=== PATIENT | female | born 1985 ===

== ENCOUNTER 2017-06-20 23:43 | Emergency (ER) | payer BC ==
[2017-06-21] MEDS ORDERED: Sodium Chloride 0.9% 1,000 ML IV STA (00:43)
[2017-06-21] MEDS ORDERED: DiphenhydrAMINE 50 mg/ml Inj IVP STA (00:44)
[2017-06-21] MEDS ORDERED: Amoxicillin-Clav 875-125 mg Tab PO STA (00:44)
--- NOTE | 2017-06-21 00:49 | ED PDOC ---
Arrival/HPI - General Historian: Patient - General Chief Complaint: Abnormal Skin Integrity Time Seen by Provider: 06/21/17 00:42 - History of Present Illness Narrative History of Present Illness (Text): 06/21/17 00:48 This 31 yo female presents to this ED c/o right forearm pruritic rash x 1 week. Patient stated rash was very itchy, and she admits scartching it. Patient was seen by promotions intern, who prescribed her steroild cream. Patient stated rash is becoming increasingly red, and swollen. Patient (Alexander Benedict) Past Medical History - Endocrine/Metabolic Hx Diabetes Mellitus Type 2: Yes - Psychiatric Hx Substance Use: Yes (occasional marijuana) Family/Social History Smoking Status: Never Smoked Hx Alcohol Use: Yes Frequency of alcohol use: Socially Hx Substance Use: Yes (occasional marijuana) Allergies/Home Meds Allergies/Adverse Reactions: Allergies No Known Allergies Allergy (Verified 06/21/17 00:17) Home Medications: Home Meds Medication Instructions Recorded Confirmed MetFORMIN [glucOPHAGE] 1,000 mg PO DAILY 06/21/17 06/21/17 Medical Decision Making Re-evaluation Time: 01:23 Reassessment Condition: Re-examined, Improved ED Course and Treatment: 06/21/17 00:58 I was available for consultation during PA evaluation. The chart was reviewed by me, and I agree with disposition. The documented history was done by the physician order entry specialist. The documented procedures were done by the physician order entry specialist. (Zelalem Monroe) 06/21/17 01:[address] scan of the head. She stated RUSSELL and dizziness have improved , and she prefers to see her doctor first. (Alexander Benedict) - Medication Orders Current Medication Orders: Sodium Chloride (Sodium Chloride 0.9%) 1,000 mls @ 999 mls/hr IV .Q1H1M STA Stop: 06/21/17 01:43 Last Admin: 06/21/17 01:22 Dose: 999 mls/hr Discontinued Medications Amoxicillin/Clavulanate Potassium (Augmentin 875 Mg-125 Mg Tab) 1 tab PO STAT STA PRN Reason: Protocol Stop: 06/21/17 00:45 Last Admin: 06/21/17 01:23 Dose: 1 tab Diphenhydramine HCl (Benadryl) 50 mg IVP STAT STA Stop: 06/21/17 00:45 Last Admin: 06/21/17 01:23 Dose: 50 mg Ketorolac Tromethamine (Toradol) 15 mg IVP STAT STA Stop: 06/21/17 00:44 Last Admin: 06/21/17 01:22 Dose: 15 mg Metoclopramide HCl (Reglan) 10 mg IVP STAT STA Stop: 06/21/17 00:44 Last Admin: 06/21/17 01:22 Dose: 10 mg Disposition/Present on Arrival - Present on Arrival Any Indicators Present on Arrival: No History of DVT/PE: No History of Uncontrolled Diabetes: No Urinary Catheter: No History of Decub. Ulcer: No History Surgical Site Infection Following: None - Disposition Have Diagnosis and Disposition been Completed?: Yes Disposition Time: 01:50 Patient Plan: Discharge - Disposition Diagnosis: Rash and nonspecific skin eruption, Headache Disposition: HOME/ ROUTINE Condition: GOOD Discharge Instructions (ExitCare): General Headache (ED), Acute Rash (ED) Additional Instructions: Call private doctor for follow up visit in 1-2 days. Take medication as instructed with food. Return to emergency if symptoms worsen. Call your promotions intern for rash revaluation. Prescriptions: Acetaminophen/Butalbital/Caf [Fioricet] 1 tab PO Q4H PRN #12 tab PRN Reason: Headache Amoxicillin/Clavulanate [Augmentin 875 MG-125 MG] 1 tab PO BID #14 tab Nystatin/Triamcinolone Acetoni [Mycolog II OINT] 1 applic TOP BID #1 tube Referrals: Xavier Fiore MD [Staff Provider] - Follow up with primary Forms: [facility] ([place]), WORK NOTE
[2017-06-21 01:31] VITALS: BP 120/74; PULSE 88; RESP 17; TEMP 98.2; O2SAT 96
== END 2017-06-21 02:00 | disposition home or self-care (01) ==
LOC: ED 23:43
DX: R21 Rash and other nonspecific skin eruption (principal); R51 Headache
CPT/HCPCS: 81025; 96361; 96374; 96375; 99284; J1200; J1885; J2765; J7040